=== PATIENT | male | born 1960 | race Caucasian/White ===

== ENCOUNTER 2023-12-06 10:59 | Emergency (ER) | payer BC, SELFPAY ==
[2023-12-06 11:14] VITALS: BP 143/98; PULSE 88; RESP 16; TEMP 36.3; O2SAT 97; BMI 25.8
--- NOTE | 2023-12-06 11:14 | ED_ITS ---
HPI - Eye Problem General Chief complaint: Eye Problems Stated complaint: painful red eye Related Data Allergies Allergy/AdvReac Type Severity Reaction Status Date / Time No Known Allergies Allergy Verified 12/06/23 11:15 Physical Exam Vital Signs: Vital Signs: Last Vital Signs Temp 97.4 F 12/06/23 11:14 Pulse 88 12/06/23 11:14 Resp 16 12/06/23 11:14 BP 143/98 H 12/06/23 11:14 Pulse Ox 97 12/06/23 11:14 O2 Del Method Room Air 12/06/23 11:14 BMI result Body Mass Index 25.8 Course Course Course Narrative: This is a Rapid Medical Examination (RME) performed by Cherie Ham PA-C in triage. Full HPI, ROS, assessment and treatment plan per primary provider in the Main ED. 63 yo male here for eval of painful red right eye x2 days which began on waking. no vision changes. feels like the eye is scratched, does not recall getting anything in the eye. no discharge/ crusting. no corrective lenses. +subconjunctival hemorrhage noted to nasal aspect of right eye. EOMS intact. Plan: Fluorescein/tetracaine, visual acuity Reevaluation(s) Reevaluation #1: Patient left the emergency department before myself or any of the other clinicians could review or explain physical exam findings, test results, need or lack there of for additional testing, treatment options, or a treatment plan. Discharge Plan Discharge Clinical Impression: Eye pain Patient Disposition: Left W/O Completing Treatment Print Language: Swedish
--- NOTE | 2023-12-06 14:05 | PC.NURSE ---
No call to name at 14:05
--- NOTE | 2023-12-06 14:51 | PC.NURSE ---
PT WAS NOT IN THE WR AT 1245
== END 2023-12-06 14:51 | disposition left against medical advice (07) ==
LOC: HO.ED 14:49
PROVIDERS: Emergency Provider Emergency Medicine; PCP Internal Medicine
DX: H57.11 Ocular pain, right eye (principal)
CPT/HCPCS: 99281